=== PATIENT | male | born 1990 | race African-American/Black ===

== ENCOUNTER 2017-11-02 00:47 | Emergency (ER) | payer SELFPAY ==
[2017-11-02] MEDS ORDERED: NORMAL SALINE 1000 ML 1,000 ML IV ONE ×2 (01:09→02:56)
--- NOTE | 2017-11-02 01:22 | ER Document Report ---
ED General - General Chief Complaint: Possible Overdose Stated Complaint: POSSIBLE OVERDOSE Time Seen by Provider: 11/02/17 01:07 Mode of Arrival: Medic Information source: Law Enforcement, Emergency Med Personnel Cannot obtain history due to: Intoxicated, Altered mental status Notes: 26-year-old male presents via EMS after being found combative, altered at his hotel room. Police report that they were called to his hotel for a disturbance and when they found the male he was confused, agitated. Police report that the patient is from [place] and thought that he was still in [place]. 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 Bystanders mention that the patient could possibly be on bath salts or mildly. Upon EMS arrival they report that he required 8 assistant branch operations manager to hold the patient down. They administered 5 mg of IV Versed, 5 mg of IV Haldol and 25 mg of IV Benadryl. Upon arrival to the emergency department patient is unresponsive but maintaining his airway/oxygenation. TRAVEL OUTSIDE OF THE [place] IN LAST 30 DAYS: No - HPI Onset: Just prior to arrival Onset/Duration: Sudden Past Medical History - General Information source: Law Enforcement, Emergency Med Personnel Cannot obtain history due to: Intoxicated, Altered mental status - Social History Smoking Status: Unknown if Ever Smoked Frequency of alcohol use: Heavy Drug Abuse: Heroin, Marijuana Lives with: Alone Family History: Reviewed & Not Pertinent - Medical History Medical History: Other Review of Systems - Review of Systems -: Yes ROS unobtainable due to patient's medical condition Physical Exam - Notes Notes: Vital signs upon arrival-blood pressure 113/73, heart rate 140, respiratory rate 14, pulse ox 100% on nonrebreather. PHYSICAL EXAMINATION: GENERAL: Unresponsive HEAD: Atraumatic, normocephalic. EYES: Pinpoint pupils ENT: Nares patent, oropharynx clear without exudates. Moist mucous membranes. NECK: No lymphadenopathy. LUNGS: Breath sounds clear to auscultation bilaterally and equal. No wheezes rales or rhonchi. HEART: Tachycardic, regular rhythm ABDOMEN: Soft, nontender, nondistended abdomen. No guarding, no rebound. No masses appreciated. Musculoskeletal: No purposeful movement. NEUROLOGICAL: Good muscle tone PSYCH: Reported psychomotor agitation prior to arrival but currently unresponsive. SKIN: Warm, Dry, normal turgor, no rashes or lesions noted. Course - Re-evaluation Re-evalutation: 11/02/17 03:32 Laboratory 11/02/17 11/02/17 11/02/17 01:57 01:57 01:57 WBC 6.2 RBC 4.66 Hgb 12.9 L Hct 38.4 MCV 82 MCH 27.7 MCHC 33.7 RDW 16.4 H Plt Count 249 Seg Neutrophils % 66.7 Lymphocytes % 24.5 Monocytes % 5.3 Eosinophils % 2.5 Basophils % 1.0 Absolute Neutrophils 4.1 Absolute Lymphocytes 1.5 Absolute Monocytes 0.3 Absolute Eosinophils 0.2 Absolute Basophils 0.1 Sodium 141.7 Potassium 4.6 Chloride 110 H Carbon Dioxide 24 Anion Gap 8 BUN 12 Creatinine 1.13 Est GFR ( Amer) > 60 Est GFR (Non-Af Amer) > 60 Glucose 90 Calcium 8.7 Total Bilirubin 0.4 Direct Bilirubin 0.4 Neonat Total Bilirubin Not Reportable Neonat Direct Bilirubin Not Reportable Neonat Indirect Bili Not Reportable AST 41 ALT 36 Alkaline Phosphatase 58 Creatine Kinase 890 H CK-MB (CK-2) 3.03 Troponin I 0.022 Total Protein 6.7 Albumin 3.8 Salicylates < 1.0 L Acetaminophen < 10 L Serum Alcohol 115 Chest X-Ray 11/02/17 01:09 IMPRESSION: 1. No acute pulmonary process identified. Head CT 11/02/17 01:10 IMPRESSION: 1. No acute intracranial abnormality identified. This exam was performed according to our departmental dose-optimization program, which includes automated exposure control, adjustment of the mA and/or kV according to patient size and/or use of iterative reconstruction technique. 26-year-old male presents via EMS and with [employer] after being found altered, agitated, combative. Patient's boss is not initially at bedside but does present shortly after patient's arrival and states that patient has a previous history of substance abuse. He believes that he was addicted to heroin at one time and he knows that he does smoke marijuana. Patient is here with his boss who owns a [email or web address] service. He states that they took the day off and the patient went out with another coworker to a strip club where they were drinking and likely took bath salts. He reports that the patient has than underlying disorder but is unsure what it is. We did contact the patient's girlfriend who also does not know what the patient's psychiatric diagnosis is but does state that he was taken off of lithium 3 months ago. Upon arrival patient is unresponsive likely secondary to receiving Versed, Haldol and Benadryl prior to arrival. CAT scan of the head was obtained and showed no acute process. Chest x-ray was also obtained and showed no acute process. Serum alcohol is 115. Urine drug screen pending. Although patient is unresponsive he has spontaneous respirations, he arrived on nonrebreather but is now on nasal cannula and has a oxygen saturation of 100%. Patient does have an elevated CK of 890. He has been receiving IV fluids. Repeat CK will be obtained at 0500. Patient may be discharged home when he is alert, awake and is able to ambulate. His boss has agreed to pick him up when he is ready for discharge. He left his number with nursing. 11/02/17 03:39 11/02/17 04:06 Urine drug screen is positive for marijuana and benzodiazepine. Benzodiazepines likely positive due to Versed administration by EMS. - Laboratory Result Diagrams: 11/02/17 01:57 11/02/17 01:57 Laboratory results interpreted by me: 11/02/17 11/02/17 11/02/17 01:57 01:57 02:38 Hgb 12.9 L RDW 16.4 H Chloride 110 H Creatine Kinase 890 H Urine Blood SMALL H Salicylates < 1.0 L Acetaminophen < 10 L - Diagnostic Test Radiology reviewed: Image reviewed, Reports reviewed - EKG Interpretation by Sd EKG shows normal: Sinus rhythm Rate: Normal Rhythm: NSR When compared to previous EKG there are: Previous EKG unavailable Discharge - Discharge Clinical Impression: Agitation, Psychomotor agitation Alcohol intoxication Qualifiers: Complication of substance-induced condition: with unspecified complication Qualified Code(s): F10.929 - Alcohol use, unspecified with intoxication, unspecified Acute drug overdose Qualifiers: Encounter type: initial encounter Injury intent: undetermined intent Qualified Code(s): T50.904A - Poisoning by unspecified drugs, medicaments and biological substances, undetermined, initial encounter Marijuana intoxication Qualifiers: Complication of substance-induced condition: with delirium Qualified Code(s): F12.921 - Cannabis use, unspecified with intoxication delirium Altered mental status Qualifiers: Altered mental status type: somnolence Qualified Code(s): R40.0 - Somnolence Condition: Good Disposition: HOME, SELF-CARE Instructions: Acute Alcohol Intoxication ([facility]), Altered Mental Status ([facility]), Narcotic Abuse ([facility]) Additional Instructions: You were brought in by EMS after you were found agitated and altered. He required heavy sedation to control you. We believe that you ingested bath salts which does not show up on your urine drug screen. Your alcohol level was also very high.
--- NOTE | 2017-11-02 01:47 | RADIOLOGY REPORT (SQ) ---
EXAM DESCRIPTION: CT HEAD WITHOUT IV CONTRAST COMPLETED DATE/TME: 11/02/2017 01:10 CLINICAL HISTORY: Altered mental status COMPARISON: None available TECHNIQUE: Axial CT of the head obtained from the skull apex to the skull base without contrast. FINDINGS: No acute intracranial hemorrhage identified. No mass, mass effect, shift of the midline, abnormal extra-axial fluid collection or CT evidence of acute ischemic change identified. The ventricular system is unremarkable. No acute abnormalities of the supratentorial white matter, basal ganglia, cerebellum, or brainstem. The visualized paranasal sinuses and the mastoids are clear. No skull fracture identified. Visualized orbits and globes are unremarkable. DLP: 1043.77 mGy-cm IMPRESSION: 1. No acute intracranial abnormality identified. This exam was performed according to our departmental dose-optimization program, which includes automated exposure control, adjustment of the mA and/or kV according to patient size and/or use of iterative reconstruction technique.
--- NOTE | 2017-11-02 02:04 | RADIOLOGY REPORT (SQ) ---
EXAM DESCRIPTION: XR CHEST 1 VIEW COMPLETED DATE/TME: 11/02/2017 01:09 CLINICAL HISTORY: unresponsive COMPARISON: None. FINDINGS: Single frontal view of the chest. The cardiomediastinal silhouette has normal size and contour. No consolidation, pneumothorax, or pleural effusion. Low lung volumes. No displaced rib fractures identified. Upper abdominal soft tissues are unremarkable. IMPRESSION: 1. No acute pulmonary process identified.
[2017-11-02 02:08] LABS: ABSOLUTE BASOPHILS # (AUTO) 0.1 10^3/uL (0.0-0.2); ABSOLUTE EOSINOPHILS # (AUTO) 0.2 10^3/uL (0.0-0.6); ABSOLUTE LYMPHOCYTES (AUTO) 1.5 10^3/uL (0.5-4.7); ABSOLUTE MONOCYTES (AUTO) 0.3 10^3/uL (0.1-1.4); ABSOLUTE NEUT (AUTO) 4.1 10^3/uL (1.7-8.2); EOSINOPHILS % (AUTO) 2.5 % (0-6); HEMATOCRIT 38.4 % (37.9-51.0); HEMOGLOBIN 12.9 g/dL (13.5-17.0); LYMPHOCYTES % (AUTO) 24.5 % (13-45); MEAN CORPUSCULAR HEMOGLOBIN 27.7 pg (27.0-33.4); MEAN CORPUSCULAR HGB CONC 33.7 g/dL (32.0-36.0); MEAN CORPUSCULAR VOLUME 82 fl (80-97); MONOCYTES % (AUTO) 5.3 % (3-13); PLATELET COUNT 249 10^3/uL (150-450); RED BLOOD COUNT 4.66 10^6/uL (4.35-5.55); RED CELL DISTRIBUTION WIDTH 16.4 % (11.5-14.0); SEGMENTED NEUTROPHILS % (AUTO) 66.7 % (42-78); TOTAL CELLS COUNTED % (AUTO) 100 %; WHITE BLOOD COUNT 6.2 10^3/uL (4.0-10.5)
[2017-11-02 02:28] LABS: ALANINE AMINOTRANSFERASE 36 U/L (21-72); ALBUMIN 3.8 g/dL (3.5-5.0); ALCOHOL 115 mg/dL (NONE DETECTED); ALKALINE PHOSPHATASE 58 U/L (38-126); ANION GAP 8 (5-19); ASPARTATE AMINO TRANSFERASE 41 U/L (17-59); BILIRUBIN,DIRECT 0.4 mg/dL (0.0-0.4); BILIRUBIN,TOTAL 0.4 mg/dL (0.2-1.3); BLOOD UREA NITROGEN 12 mg/dL (7-20); CALCIUM 8.7 mg/dL (8.4-10.2); CARBON DIOXIDE 24 mmol/L (22-30); CHLORIDE 110 mmol/L (98-107); CREATINE KINASE 890 U/L (55-170); GLUCOSE 90 mg/dL (75-110); POTASSIUM 4.6 mmol/L (3.6-5.0); SODIUM 141.7 mmol/L (137-145); TOTAL PROTEIN 6.7 g/dL (6.3-8.2)
[2017-11-02 02:30] LABS: ACETAMINOPHEN < 10 ug/mL (10-30); SALICYLATE < 1.0 mg/dL (2.0-20.0)
[2017-11-02 02:38] LABS: CREATINE KINASE MB 3.03 ng/mL (<4.55); TROPONIN I 0.022 ng/mL
[2017-11-02 03:46] LABS: APPEARANCE,URINE CLEAR; BILIRUBIN,URINE NEGATIVE (NEGATIVE); COLOR,URINE YELLOW; GLUCOSE, URINE NEGATIVE (NEGATIVE); KETONES,URINE NEGATIVE (NEGATIVE); LEUKOCYTE ESTERASE,URINE NEGATIVE (NEGATIVE); NITRITE,URINE NEGATIVE (NEGATIVE); PROTEIN,URINE NEGATIVE (NEGATIVE); URINE SPECIFIC GRAVITY 1.009; UROBILINOGEN,URINE NEGATIVE mg/dL (<2.0)
[2017-11-02 03:55] LABS: URINE AMPHETAMINES SCREEN NEGATIVE; URINE BARBITURATES SCREEN NEGATIVE; URINE BENZODIAZEPINES SCREEN UNCONFIRMED POSITIVE; URINE COCAINE SCREEN NEGATIVE; URINE MARIJUANA (THC) SCREEN UNCONFIRMED POSITIVE; URINE METHADONE SCREEN NEGATIVE; URINE PHENCYCLIDINE SCREEN NEGATIVE
[2017-11-02 07:56] VITALS: BP 124/93
--- NOTE | 2017-11-02 08:45 | EKG REPORT ---
SEVERITY:- ABNORMAL ECG - SINUS RHYTHM ST ELEVATION SUGGESTS PERICARDITIS VS EARLY REPOL CHANGES : Confirmed by: Janette Knapp 02-Nov-2017 08:45:01
== END 2017-11-02 09:30 | disposition home or self-care (01) ==
LOC: ER 00:47
DX: R45.1 Restlessness and agitation (principal); F10.929 Alcohol use, unspecified with intoxication, unspecified; T50.904A Poisoning by unspecified drugs, medicaments and biological substances, undetermined, initial encounter; F12.921 Cannabis use, unspecified with intoxication delirium; R40.0 Somnolence; X58.XXXA Exposure to other specified factors, initial encounter
CPT/HCPCS: 36415; 70450; 71045; 80053; 80307; 81001; 82550; 82553; 84484; 85025; 93005; 93010; 99285